=== PATIENT | female | born 1945 | race African-American/Black ===

== ENCOUNTER 2016-07-18 14:58 | Observation (INO) | payer OTHER ==
--- NOTE | 2016-07-18 15:33 | PDOC ---
History of Present Illness - General History Source: Patient Exam Limitations: No Limitations - History of Present Illness Initial Comments: 07/18/16 15:35 <Marie Montgomery - Last Filed: 07/18/16 15:35> - General History Source: Patient Exam Limitations: No Limitations - History of Present Illness Initial Comments: 07/18/16 17:13 The patient is a 70-year-old woman with a significant past medical history of asthma, hypertension, hypercholesterolemia and diabetes mellitus who presents to the emergency department for further evaluation of pre-syncope. Patient states that yesterday, she went to accompany her daughter to the nail salon, when she felt lightheaded, described as feeling flushed, sweaty and feeling like she was going to faint. Patient states that she took her insulin, had a piece of bread and felt better. She admits that she did not have much to eat yesterday. She states that today, she was in her usual state of health, lying down watching television at approximately 14:30 this afternoon, when she felt lightheaded and diaphoretic. She reports compliance with eating sufficient today and taking her medications. She states that her sugars typically run in the 120s range. She states that she measured her blood glucose prior and post meal, with a reported blood glucose measurement of 89 prior eating her bowl of cereal and 80 post cereal. She denies associated symptoms of palpitations, chest pain, visual changes, abdominal pain, nausea, vomiting, diarrhea. She believes that her symptoms are derived from a upper respiratory symptoms that she experienced last week (runny nose, intermittent productive cough with mucus ). Allergies: None Known Past Surgical History: Cholecystectomy Social History: She denies tobacco, ETOH and recreational drug use. Primary Care Physician: Dr. Ely Ventura [phone] Cardiology: Dr. Wil La [phone] <Lucho Boyce - Last Filed: 07/18/16 18:14> - General Chief Complaint: Weakness Stated Complaint: WEAKNESS Time Seen by Provider: 07/18/16 15:18 Past History <Marie Montgomery - Last Filed: 07/18/16 15:35> - Past Medical History Asthma: Yes Diabetes: Yes HTN: Yes Hypercholesterolemia: Yes - Surgical History Abdominal Surgery: Yes (gall bladder) Cholecystectomy: Yes - Psycho/Social/Smoking Cessation Hx Anxiety: No Suicidal Ideation: No Smoking Status: No Smoking History: Never smoked Have you smoked in the past 12 months: No Number of Cigarettes Smoked Daily: 0 Information on smoking cessation initiated: No Hx Alcohol Use: No Drug/Substance Use Hx: No <Lucho Boyce - Last Filed: 07/18/16 18:14> - Past Medical History Allergies/Adverse Reactions: Allergies Allergy/AdvReac Type Severity Reaction Status Date / Time No Known Allergies Allergy Verified 07/18/16 15:05 Home Medications: Ambulatory Orders Atorvastatin Calcium 20 mg PO ASDIR 03/29/16 Azithromycin [Zithromax Tri-Long (3 DAYS) -] 500 mg PO DAILY #3 tablet 03/29/16 Calcium + D Soft Chewable Tab 400 - 600 mg PO ASDIR 03/29/16 Diltiazem HCl 240 mg PO DAILY 03/29/16 Lantus (10mL VIAL) - 100 units PO DAILY 03/29/16 Metformin HCl 1,000 mg PO DAILY 03/29/16 Review of Systems - Review of Systems Able to Perform ROS?: Yes Comments:: 07/18/16 15:35 <Marie Montgomery - Last Filed: 07/18/16 15:35> - Review of Systems Able to Perform ROS?: Yes Comments:: 07/18/16 17:15 CONSTITUTIONAL: No reported: Fever, Chills, Diaphoresis, Generalized Weakness, Malaise, Loss of Appetite HEENT: Reported: Rhinorrhea. No reported: Nasal Congestion, Throat Pain, Throat Swelling, Difficulty Swallowing, Mouth Swelling, Ear Pain, Eye Pain, Visual Changes CARDIOVASCULAR: reported: presyncope, Lightheadedness, No reported: Chest Pain, Syncope, Palpitations, Irregular Heart Rate, Peripheral Edema RESPIRATORY: No reported: Shortness of Breath, SOB with Exertion, Orthopnea, Wheezing, Stridor, Hemoptysis GASTROINTESTINAL: No reported: Abdominal pain, Abdominal Distension, Nausea, Vomiting, Diarrhea, Constipation, Melena, Hematochezia GENITOURINARY: No reported: Dysuria, Frequency, Urgency, Hesitancy, Flank Pain, Genital Pain MUSCULOSKELETAL: No reported: Myalgia, Arthralgia, Joint Swelling, Back pain, Neck Pain SKIN: No reported: Rash, Itching, Pallor HEMEATOLOGIC/IMMUNOLOGIC: No reported: Easy Bleeding, Easy Bruising, Lymphadenopathy, Frequent infections ENDOCRINE: No reported: Unexplained Weight Gain, Unexplained Weight Loss, Heat Intolerance , Cold Intolerance NEUROLOGIC: No reported: Headache, Focal Weakness, Paresthesias, Vertigo, Unsteady Gait, Seizure, Mental Status Changes, Incontinence PSYCHIATRIC: No reported: Anxiety, Depression <Eugene Boycean - Last Filed: 07/18/16 18:14> *Physical Exam - Vital Signs Last Vital Signs Temp Pulse Resp BP Pulse Ox 97.9 F 78 18 162/82 98 07/18/16 15:06 07/18/16 15:06 07/18/16 15:06 07/18/16 15:06 07/18/16 15:06 - Physical Exam Comments: 07/18/16 15:35 <Marie Montgomery - Last Filed: 07/18/16 15:35> - Vital Signs Last Vital Signs Temp Pulse Resp BP Pulse Ox 97.9 F 78 18 162/82 98 07/18/16 15:06 07/18/16 15:06 07/18/16 15:06 07/18/16 15:06 07/18/16 15:06 - Physical Exam Comments: 07/18/16 17:16 GENERAL: The patient is awake, alert, and fully oriented, Nontoxic - in no acute distress. HEAD: Normocephalic, atraumatic. EYES: extraocular movements intact, sclera anicteric, conjunctiva clear. ENT: Normal voice, Moist mucous membranes. NECK: Normal range of motion, supple LUNGS: Breath sounds equal, clear to auscultation bilaterally. No wheezes, no rhonchi, no rales. HEART: Regular rate and rhythm, without murmur, rub or gallop. ABDOMEN: Soft, nontender, normoactive bowel sounds. No guarding, no rebound.No CVA tenderness EXTREMITIES: Normal range of motion, no edema. No clubbing or cyanosis. No cords , erythema, or tenderness. NEUROLOGICAL: No facial assymetry, Normal speech, PSYCH: Normal mood, normal affect. SKIN: Warm, Dry, normal turgor. <Lucho Boyce - Last Filed: 07/18/16 18:14> Heart Score/ECG Review - ECG Impressions Comment:: 07/18/16 15:50 Twelve-lead EKG was performed and reviewed by me. There is normal sinus rhythm with a normal rate. Rate of 73 The axis is normal. The intervals are normal. There is normal R wave progression Q waves in leads 3 T wave flattening noted in the lateral leads <Lucho Boyce - Last Filed: 07/18/16 18:14> ED Treatment Course - LABORATORY CBC & Chemistry Diagram: 07/18/16 16:09 07/18/16 16:09 <Lucho Boyce - Last Filed: 07/18/16 18:14> Medical Decision Making - Medical Decision Making 07/18/16 15:48 70y F hx of htn, dm, hl, presents with episodes of 'flushing', diaphoresis and generalized weakness, lasting for 10-15 min, once yesterday and once again today - the pt denies any associated pain, palpitations, lightheadedhenss, cp, headache, neck pain, back pain, n/v. These occurred at rest, no exertional sypmtoms. pt currently asypmtomatic. On exam the pt is well appearing in no acute distress, vitals unremarakble differential includes hypoglycemia, arrythmia, acs, metabolic dernagement, uti will ck cbc, cmp, ua, ekg, trops will reassess will put on tele montiring A portion of this note was documented by scribe services under my direction. I have reviewed the details of the note, within reason, and agree with the documentation with the following case summary and management plan written by me 07/18/16 17:17 07/18/16 18:10 labs reviewed neg cbc, cmp ekg nondiatnogsitc, but is nsr will place in observation for tele monitoring 07/18/16 18:[address] goel agreed with admission for observation for tele monitring Case discussed in detail with admitting physician including history, physical exam and ancillary studies. Admitting physician has assumed care for the patient, will follow all pending diagnostics and will complete the evaluation and treatment. <Lucho Boyce - Last Filed: 07/18/16 18:14> *DC/Admit/Observation/Transfer - Attestations Scribe Attestion: 07/18/16 15:35 Documentation prepared by Marie Montgomery, acting as medical center representative for Lucho Boyce MD. <Marie Montgomery - Last Filed: 07/18/16 15:35> - Discharge Dispostion Admit: Yes <Lucho Boyce - Last Filed: 07/18/16 18:14> Diagnosis at time of Disposition: Pre-syncope - Discharge Dispostion Condition at time of disposition: Stable
[2016-07-18 16:48] LABS: BASOPHIL 1.1 % (0-2.0); MCH 26.8 pg (25.7-33.7); MCHC 33.4 g/dl (32.0-36.0); MEAN CELL VOLUME 80.3 fl (80-96); MEAN PLT VOLUME 8.5 fl (7.5-11.1); NEUTROPHILS 58.1 % (42.8-82.8); PLATELET COUNT 360 K/MM3 (134-434); RDW 14.3 % (11.6-15.6); WHITE BLOOD COUNT 7.7 K/mm3 (4.0-10.0)
[2016-07-18 17:00] LABS: INR 1.01 (0.82-1.09); PROTHROMBIN TIME (PATIENT) 11.1 SEC (9.98-11.88)
[2016-07-18 17:05] LABS: ALBUMIN 4.2 g/dl (3.4-5.0); ANION GAP 9 (8-16); BILIRUBIN,TOTAL 0.2 mg/dL (0.2-1.0); CALCIUM 10.3 mg/dL (8.5-10.1); CO2 26 mmol/L (21-32); CREATININE 0.9 mg/dL (0.55-1.02); GLUCOSE,RANDOM 130 mg/dL (74-106); SGOT/AST 10 U/L (15-37); SGPT/ALT 19 U/L (12-78); TOT PROT 7.8 g/dl (6.4-8.2)
[2016-07-18 17:13] LABS: ALK PHOS 128 U/L (45-117); THYROID STIMULATING HORMONE 0.58 uIU/ml (0.358-3.74)
[2016-07-18 18:44] LABS: TROPONIN I 0.02 ng/ml (0.00-0.05)
--- NOTE | 2016-07-18 19:39 | PN ---
<DoriDennyalbertina - Last Filed: 07/18/16 19:38> Teaching Attending Note Name of Resident: Karen Gomez ATTENDING PHYSICIAN STATEMENT I saw and evaluated the patient. I reviewed the resident's note and discussed the case with the resident. I agree with the resident's findings and plan as documented. SUBJECTIVE: OBJECTIVE: ASSESSMENT AND PLAN: <Kena Jackman - Last Filed: 07/18/16 21:34> Teaching Attending Note ATTENDING PHYSICIAN STATEMENT I saw and evaluated the patient. I reviewed the resident's note and discussed the case with the resident. I agree with the resident's findings and plan as documented. SUBJECTIVE: The patient is a 70 yo F with a PMHx of asthma, HTN, HLD and diabetes, who presents with lightheadedness and feeling flushed. OBJECTIVE: Physical Last Vital Signs Temp Pulse Resp BP Pulse Ox 97.9 F 78 18 162/82 98 07/18/16 15:06 07/18/16 15:06 07/18/16 15:06 07/18/16 15:06 07/18/16 15:06 GEN: NAD HEENT: NCAT, PERRL CARD: RRR, S1 S2 RESP: CTAB ABD: + Obese. NT, BWS x4 EXT: - CCE CBCD WBC 7.7 K/mm3 (4.0-10.0) 07/18/16 16:09 RBC 4.49 M/mm3 (3.60-5.2) 07/18/16 16:09 Hgb 12.0 GM/dL (10.7-15.3) 07/18/16 16:09 Hct 36.0 % (32.4-45.2) 07/18/16 16:09 MCV 80.3 fl (80-96) 07/18/16 16:09 MCHC 33.4 g/dl (32.0-36.0) 07/18/16 16:09 RDW 14.3 % (11.6-15.6) 07/18/16 16:09 Plt Count 360 K/MM3 (134-434) D 07/18/16 16:09 MPV 8.5 fl (7.5-11.1) 07/18/16 16:09 CMP Sodium 142 mmol/L (136-145) 07/18/16 16:09 Potassium 4.2 mmol/L (3.5-5.1) 07/18/16 16:09 Chloride 107 mmol/L (98-107) 07/18/16 16:09 Carbon Dioxide 26 mmol/L (21-32) 07/18/16 16:09 Anion Gap 9 (8-16) 07/18/16 16:09 BUN 18 mg/dL (7-18) D 07/18/16 16:09 Creatinine 0.9 mg/dL (0.55-1.02) D 07/18/16 16:09 Creat Clearance w eGFR > 60 (>60) 07/18/16 16:09 Calcium 10.3 mg/dL (8.5-10.1) H 07/18/16 16:09 Total Bilirubin 0.2 mg/dL (0.2-1.0) D 07/18/16 16:09 AST 10 U/L (15-37) L D 07/18/16 16:09 ALT 19 U/L (12-78) D 07/18/16 16:09 Alkaline Phosphatase 128 U/L (45-117) H D 07/18/16 16:09 Total Protein 7.8 g/dl (6.4-8.2) 07/18/16 16:09 Albumin 4.2 g/dl (3.4-5.0) 07/18/16 16:09 EKG NSR with rate of 73 Q waves in Lead 3 Last Carotid 2012- Mild atheroscleroscotic disease Last Echo 2012- Ejection Fraction was 68% ASSESSMENT AND PLAN: The patient is a 70 yo F with PMHx of afib, asthma, HTN, HLD and diabetes who presents with lightheadedness dizziness and flushing. Patient will be admitted for pre-syncopal evaluation. 1.) Lightheadedness - Orthostatic VS - Fingersticks - Echo complete - Carotid US - IVF - Trend troponins/ EKG 2.) Diabetes - Fingersticks - Rapid acting Insulin - Continue Metformin - Lantus--> confirm dosage 3.) HTN - Continue cardizem 4.) HLD - Resume statin - Check lipid panel 5.) DVT PPX - Low risk - SCDS Place in Observation Tele Documentation prepared by Kena Jackman, acting as medical detailist for Duran Meadows MD.
--- NOTE | 2016-07-18 20:13 | MSN ---
Admitting History and Physical - Primary Care Physician PCP: Ely Santana - Admission Chief Complaint: Pre-Synope W/ Weakness History of Present Illness: Patient is a 70 year old F with past medical history of Athsma, HTN, DM, Stroke , Rheumatic Fever, Cardiomegaly, and and irregular rhythm, who presented to the ED with after 2 occasions of feeling lightheaded and diaphoretic with generalized weakness. Yesterday the patient was out and she started to feel lightheaded and weak as she does when she has not eaten in a while. When she got home later that day she ate a piece of bread and felt better. Today she had a similar feeling of lightheadedness and weakness but was also diaphoretic. She ate cereal and noted that her blood sugar dropped from 89 preprandial to 80 Postprandial. The patient states that she has been coughing up mucus and her nose has been running for the past week. She denies any CP, SOB, Visual changes, Changes in urinatior stool, nausea, vomiting, diarrhea, const. or abdominal pain. History Source: Patient Limitations to Obtaining History: No Limitations - Past Medical History PRESENTATION SPECIALIST: Yes: CVA Cardiovascular: Yes: AFIB, Other (Rheumatic Fever, Irregular heart beat) Pulmonary: Yes: Asthma Gastrointestinal: No: Constipation Endocrine: Yes: Diabetes Mellitus - Past Surgical History Past Surgical History: Yes: Cholecystectomy, Hysterectomy Additional Past Surgical History: Lumpectomy x3 - Smoking History Smoking history: Former smoker Have you smoked in the past 12 months: No Aproximately how many cigarettes per day: 1 If you are a former smoker, when did you quit?: 2006 - Alcohol/Substance Use Hx Alcohol Use: Yes (Quit in 2006) - Social History Usual Living Arrangement: Yes: Alone ADL: Support Services History of Recent Travel: No Home Medications - Allergies Allergies/Adverse Reactions: Allergies Allergy/AdvReac Type Severity Reaction Status Date / Time No Known Allergies Allergy Verified 07/18/16 15:05 - Home Medications Home Medications: Ambulatory Orders Aspirin [ASA -] 81 mg PO DAILY 07/18/16 Atorvastatin Ca [Lipitor] 20 mg PO HS 07/18/16 Calcium Carbonate/Vitamin D3 [Calcium 600 + Vit D Tablet] 1 each PO DAILY Carvedilol [Coreg] 6.25 mg PO BID 07/18/16 Clopidogrel Bisulfate [Plavix -] 75 mg PO DAILY 07/18/16 Diltiazem Cd [Cardizem Cd -] 240 mg PO DAILY 07/18/16 Gemfibrozil [Lopid -] 600 mg PO BID 07/18/16 Glimepiride [Amaryl -] 4 mg PO DAILY@0700 07/18/16 Metformin HCl [Metformin HCl ER] 1,000 mg PO BID 07/18/16 Family Disease History - Family Disease History Family Disease History: Other: Mother (Cirrhosis ) Review of Systems - Review of Systems Constitutional: reports: Diaphoresis, Weakness. denies: Fever Eyes: reports: No Symptoms HENT: reports: No Symptoms Neck: reports: No Symptoms Cardiovascular: reports: No Symptoms. denies: Chest Pain, Shortness of Breath Respiratory: reports: Cough Gastrointestinal: reports: No Symptoms Genitourinary: reports: No Symptoms Breasts: reports: No Symptoms Reported Musculoskeletal: reports: Muscle Weakness Integumentary: reports: No Symptoms Neurological: reports: Pre-Existing Deficit (Weakness in left side due to previous stroke), Weakness Endocrine: reports: Excessive Sweating Hematology/Lymphatic: reports: No Symptoms Psychiatric: reports: No Symptoms Physical Examination Vital Signs: Vital Signs Temperature 97.9 F 07/18/16 15:06 Pulse Rate 78 07/18/16 15:06 Respiratory Rate 18 07/18/16 15:06 Blood Pressure 162/82 07/18/16 15:06 O2 Sat by Pulse Oximetry (%) 98 07/18/16 15:06 Constitutional: Yes: Well Nourished, No Distress, Calm Eyes: Yes: WNL, Conjunctiva Clear, EOM Intact, PERRL HENT: Yes: WNL, Atraumatic, Normocephalic Neck: Yes: WNL, Supple, Trachea Midline Cardiovascular: Yes: WNL, Regular Rate and Rhythm, S1, S2. No: Gallop, Murmur, Rub Respiratory: Yes: WNL, Regular, CTA Bilaterally Gastrointestinal: Yes: WNL, Normal Bowel Sounds, Soft, Abdomen, Obese Edema: No Integumentary: Yes: WNL Neurological: Yes: WNL, Alert, Oriented, Pre-Existing Deficit (Weakness on left side due to stroke) Psychiatric: Yes: WNL, Alert, Oriented Assessment/Plan Patient is a 70 year old F with past medical history of athsma, HTN, DM, Stroke , Rheumatic Fever, Cardiomegaly, and a.fib, who presented to the ED with after 2 occasions of feeling lightheaded and diaphoretic with generalized weakness. Due to her presentation and symptoms the diagnosis of pre-syncope due to a URI or uncontrolled glucose. Lightheadedness -Orthostatic BP -Glucose Fingersticks -Echo-complete -Carotid US -IVF -Trend troponins-Neg -EKG-neg -Fluids Diabetes -Fingersticks -Rapid acting Insulin -hold Metformin -Lantus-confirm dosage HTN -Continue cardizem HLD -Resume statin -Check lipid panel DVT PPX -Low risk -SCDS URI -Rapid Strep -Influenza Screen
[2016-07-18] MEDS ORDERED: SODIUM CHLORIDE 1,000 ML IV SCH (21:30)
[2016-07-18] MEDS ORDERED: ATORVASTATIN CA 20 MG TABLET (FP) PO SCH (22:00)
--- NOTE | 2016-07-18 22:01 | HP ---
CHIEF COMPLAINT: Weakness and lightheadedness PCP: Dr. Gama HISTORY OF PRESENT ILLNESS: Patient is a 70 year old female with a PMHx of HTN, HLD, DMII, CHF, A.fib, CVA, Rheumatic fever who complains of lightheadedness and weakness that first started yesterday afternoon. Patient reports she skipped breakfast and then ate some bread, which helped resolve the symptoms. Patient then reports today she started feeling lightheaded, dizzy, and fatigued associated with diaphoresis. Patient states in the past week she's had cold symptoms that included a dry cough, runny nose, and congestion. Patient also reports that she was unable to walk today due to her lightheadedness to the point of feeling like she was about to pass out, which prompted this hospital visit. She ate some cereal but her blood sugar dropped from 89 to 80 postprandial. Patient does report similar symptoms in the past when she had a respiratory infection. Otherwise, patient denies fever, chills, vomiting, chest pain, palpitations, shortness of breath, abdominal pain, headache, abdominal pain. ER course was notable for: (1) Chest x-ray (2) Cardiac enzymes (3) Recent Travel: Denies PAST MEDICAL HISTORY: HTN, HLD, DMII, CHF, A.fib, CVA, Rheumatic fever PAST SURGICAL HISTORY: Cholecystectomy, Hysterectomy, Lumpectomy Social History: Smoking: Quit in 2006 Alcohol: Quit in 2006 Drugs: Denies Family History: Mother had liver cirrhosis Allergies: No Known Allergies Allergy (Verified 07/18/16 15:05) HOME MEDICATIONS: Home Medications Medication Instructions Recorded Atorvastatin Calcium 20 mg PO ASDIR 03/29/16 Azithromycin [Zithromax Tri-Long (3 500 mg PO DAILY #3 tablet 03/29/16 DAYS) -] Calcium + D Soft Chewable Tab 400 - 600 mg PO ASDIR 03/29/16 Diltiazem HCl 240 mg PO DAILY 03/29/16 Lantus (10mL VIAL) - 100 units PO DAILY 03/29/16 Metformin HCl 1,000 mg PO DAILY 03/29/16 REVIEW OF SYSTEMS CONSTITUTIONAL: diaphoresis, generalized weakness, malaise Absent: fever, chills, loss of appetite, weight change HEENT: rhinorrhea, nasal congestion Absent: throat pain, throat swelling, difficulty swallowing, mouth swelling, ear pain, eye pain, visual changes CARDIOVASCULAR: Absent: chest pain, syncope, palpitations, irregular heart rate, lightheadedness , peripheral edema RESPIRATORY: cough Absent: shortness of breath, dyspnea with exertion, orthopnea, wheezing, stridor , hemoptysis GASTROINTESTINAL: nausea Absent: abdominal pain, abdominal distension, vomiting, diarrhea, constipation, melena, hematochezia GENITOURINARY: Absent: dysuria, frequency, urgency, hesitancy, hematuria, flank pain, genital pain MUSCULOSKELETAL: Absent: myalgia, arthralgia, joint swelling, back pain, neck pain SKIN: Absent: rash, itching, pallor HEMATOLOGIC/IMMUNOLOGIC: Absent: easy bleeding, easy bruising, lymphadenopathy, frequent infections ENDOCRINE: Absent: unexplained weight gain, unexplained weight loss, heat intolerance, cold intolerance NEUROLOGIC: Absent: headache, focal weakness or paresthesias, dizziness, unsteady gait, seizure, mental status changes, bladder or bowel incontinence PSYCHIATRIC: Absent: anxiety, depression, suicidal or homicidal ideation, hallucinations. Vital Signs - 24 hr 07/18/16 15:06 Temperature 97.9 F Pulse Rate 78 Respiratory 18 Rate Blood Pressure 162/82 O2 Sat by Pulse 98 Oximetry (%) PHYSICAL EXAMINATION GENERAL: Awake, alert, and fully oriented, in no acute distress. HEAD: Normal with no signs of trauma. EYES: Pupils equal, round and reactive to light, extraocular movements intact, sclera anicteric, conjunctiva clear. EARS, NOSE, THROAT: Ears normal, nares patent, oropharynx clear without exudates. Moist mucous membranes. NECK: Normal range of motion, supple without lymphadenopathy, JVD, or masses. LUNGS: Breath sounds equal, clear to auscultation bilaterally. No wheezes, and no crackles. No accessory muscle use. HEART: Regular rate and rhythm, normal S1 and S2 without murmur, rub or gallop. ABDOMEN: Obese, Soft, nontender, not distended, normoactive bowel sounds, no guarding, no rebound, no masses. No hepatomegaly or splenomegaly. EXTREMITIES: No peripheral edema. NEUROLOGICAL: No focal deficits. Normal speech. Normal gait. PSYCHIATRIC: Cooperative. Good eye contact. Appropriate mood and affect. SKIN: Warm, dry, normal turgor, no rashes or lesions noted. Laboratory Results - last 24 hr 07/18/16 07/18/16 07/18/16 16:09 16:09 16:09 WBC 7.7 RBC 4.49 Hgb 12.0 Hct 36.0 MCV 80.3 MCHC 33.4 RDW 14.3 Plt Count 360 D MPV 8.5 Neutrophils % 58.1 Lymphocytes % 27.9 Monocytes % 7.9 Eosinophils % 5.0 H D Basophils % 1.1 INR 1.01 Sodium 142 Potassium 4.2 Chloride 107 Carbon Dioxide 26 Anion Gap 9 BUN 18 D Creatinine 0.9 D Creat Clearance w eGFR > 60 Random Glucose 130 H D Calcium 10.3 H Total Bilirubin 0.2 D AST 10 L D ALT 19 D Alkaline Phosphatase 128 H D Creatine Kinase Troponin I Total Protein 7.8 Albumin 4.2 TSH 0.58 07/18/16 16:25 WBC RBC Hgb Hct MCV MCHC RDW Plt Count MPV Neutrophils % Lymphocytes % Monocytes % Eosinophils % Basophils % INR Sodium Potassium Chloride Carbon Dioxide Anion Gap BUN Creatinine Creat Clearance w eGFR Random Glucose Calcium Total Bilirubin AST ALT Alkaline Phosphatase Creatine Kinase 111 Troponin I 0.02 Total Protein Albumin TSH Chest X-ray: No acute pathology. Cardiomegaly ASSESSMENT/PLAN: Patient is a 70 year old female with a PMHx of HTN, HLD, DMII, CHF, A.fib who presents today for near syncopal episode due to lightheadedness and dizziness. Patient admitted to telemetry for further monitoring and management. Lightheadedness with near syncopal episode -Echo ordered -Carotid U/S ordered -Trend Troponing -IV fluids with NS @75mls/hr -Orthostatic vital signs -Cardiac monitoring for any arrhythmias Upper Respiratory Infection -Symptoms of rhinorrhea, dry cough, and congestion -Flu Swab -Treat symptomatically HTN -Continue home medication Carvedilol 6.25mg BID -Continue to monitor BP DM II -Insulin Sliding Scale -BGM -Lantus- confirm dosage HLD -Resume Atorvastatin 40mg daily -Continue Gemifibrozil 600mg BID A.fib -Continue Diltiazem HCl 240mg -Continue Cardiac monitoring CHF -On no home medication -Chest X-ray shows cardiomegaly but no cute pathology CAD -Continue ASA 81mg daily F/E/N -Normal Saline @75mls/hr -Electrolytes wnl -Diabetic/sodium/fat controlled diet Prophylaxis -SCD's for DVT Disposition -Full code -Placed in observation to telemetry. Visit type - Emergency Visit Emergency Visit: Yes ED Registration Date: 07/18/16 Care time: The patient presented to the Emergency Department on the above date and was hospitalized for further evaluation of their emergent condition. - New Patient This patient is new to me today: Yes Date on this admission: 07/18/16 - Critical Care Critical Care patient: No
--- NOTE | 2016-07-19 00:19 | EKG ---
Test Reason : Blood Pressure : / mmHG Vent. Rate : 073 BPM Atrial Rate : 073 BPM P-R Int : 192 ms QRS Dur : 080 ms QT Int : 372 ms P-R-T Axes : 008 030 020 degrees QTc Int : 409 ms NORMAL SINUS RHYTHM POSSIBLE ANTERIOR INFARCT , AGE UNDETERMINED ABNORMAL ECG WHEN COMPARED WITH ECG OF 12-APR-2013 08:51, T WAVE VARIATION Confirmed by DIMITRY GALAN MD ([id number]) on 07/19/2016 12:19:09 AM Referred By: Confirmed By:DIMITRY GALAN MD
[2016-07-19 00:31] VITALS: BMI 34.9
[2016-07-19 01:51] LABS: ANION GAP 11 (8-16); BILIRUBIN,TOTAL 0.2 mg/dL (0.2-1.0); CALCIUM 10.2 mg/dL (8.5-10.1); CO2 28 mmol/L (21-32); CREATININE 0.8 mg/dL (0.55-1.02); GLUCOSE,RANDOM 131 mg/dL (74-106); SGOT/AST 11 U/L (15-37); SGPT/ALT 15 U/L (12-78); TOT PROT 7.4 g/dl (6.4-8.2)
[2016-07-19 01:52] LABS: ALK PHOS 121 U/L (45-117)
[2016-07-19 03:50] LABS: URINE APPEARANCE CLEAR; URINE BILIRUBIN NEGATIVE (NEGATIVE); URINE BLOOD NEGATIVE (NEGATIVE); URINE COLOR LTYELLOW; URINE GLUCOSE (UA) NEGATIVE (NEGATIVE); URINE KETONE NEGATIVE (NEGATIVE); URINE NITRITE NEGATIVE (NEGATIVE); URINE PROTEIN NEGATIVE (NEGATIVE); URINE UROBILINOGEN NEGATIVE E.U./dl (0.2-1.0)
[2016-07-19 03:51] LABS: URINE LEUK ESTERASE TRACE (NEGATIVE)
[2016-07-19 03:55] LABS: URINE BACTERIA RARE /hpf (NONE SEEN); URINE HYALINE CAST 1 /lpf; URINE RBC <1 /hpf (0-3); URINE WBC 3 /hpf (3-5)
[2016-07-19] MEDS: INSULIN SLIDING SCALE (NOVOLOG) 1 VIAL SQ SCH ×2 (06:22→12:38)
[2016-07-19] MEDS: CARVEDILOL 6.25 MG TABLET (FP) PO SCH ×2 (06:22→09:19)
[2016-07-19] MEDS ORDERED: GEMFIBROZIL 600 MG TABLET (FP) PO SCH (07:00)
[2016-07-19 08:33] LABS: TROPONIN I 0.02 ng/ml (0.00-0.05)
--- NOTE | 2016-07-19 09:10 | MSN ---
Progress Note (SOAP) - Subjective Chief Complaint: Lightheadedness and generalized weakness History of Present Illness: Pt is a 70 yo female with a PMHx of HTN, HLD, DMII, CHF, Afib, CVA, and rheumatic fever, who presented to the ER on 07/18/16 complaining of lightheadedness and generalized weakness. She states she had a similar episode the day before as well. The episode of lightheadedness correlated with a blood sugar level of 89 preprandial that dropped to 80 postprandial after eating cereal. Pt admits to having URI Sx for the past week including cough, rhinorrhea , and congestion. Denies F/C, N/V, diarrhea, abdominal pain, CP, palpitations, SOB, headache, and acute change in vision. - Current Medications Current Medications: Active Medications Aspirin (Asa -) 81 mg PO DAILY [facility] Atorvastatin Calcium (Lipitor -) 20 mg PO HS [facility] Last Admin: 07/19/16 06:22 Dose: 20 mg Carvedilol (Coreg -) 6.25 mg PO BID [facility] Last Admin: 07/19/16 06:22 Dose: 6.25 mg Clopidogrel Bisulfate (Plavix -) 75 mg PO DAILY [facility] Diltiazem HCl (Cardizem Cd -) 240 mg PO DAILY [facility] Gemfibrozil (Lopid -) 600 mg PO BID@0700,1630 [facility] Last Admin: 07/19/16 06:23 Dose: 600 mg Sodium Chloride (Normal Saline -) 1,000 mls @ 75 mls/hr IV ASDIR [facility] Last Admin: 07/18/16 21:44 Dose: 75 mls/hr Insulin Aspart (Novolog Vial Sliding Scale -) 1 vial SQ ACHS [facility] PRN Reason: Protocol Last Admin: 07/19/16 06:22 Dose: 2 units - Objective Vital Signs: Vital Signs Temperature 98.2 F 07/19/16 09:00 Pulse Rate 64 07/19/16 09:00 Respiratory Rate 14 07/19/16 09:00 Blood Pressure 160/86 07/19/16 09:00 O2 Sat by Pulse Oximetry (%) 100 07/19/16 06:00 Constitutional: Yes: Well Nourished, No Distress, Calm Eyes: Yes: WNL, Conjunctiva Clear, EOM Intact, PERRL. No: Sclera Icterus HENT: Yes: WNL, Atraumatic, Normocephalic, Nasal Congestion, Rhinnorhea Cardiovascular: Yes: Pulse Irregular. No: JVD, Gallop, Murmur Respiratory: Yes: WNL, Regular, CTA Bilaterally. No: SOB Gastrointestinal: Yes: Normal Bowel Sounds, Soft Musculoskeletal: Yes: WNL Extremities: Yes: WNL Edema: No Neurological: Yes: WNL, Alert, Oriented, Numbness (Numbness in R hand s/p CVA in 2012) ...Motor Strength: Yes: WNL Psychiatric: Yes: WNL, Alert, Oriented Labs Lab Results: Laboratory Last Values WBC 7.7 K/mm3 (4.0-10.0) 07/18/16 16:09 RBC 4.49 M/mm3 (3.60-5.2) 07/18/16 16:09 Hgb 12.0 GM/dL (10.7-15.3) 07/18/16 16:09 Hct 36.0 % (32.4-45.2) 07/18/16 16:09 MCV 80.3 fl (80-96) 07/18/16 16:09 MCHC 33.4 g/dl (32.0-36.0) 07/18/16 16:09 RDW 14.3 % (11.6-15.6) 07/18/16 16:09 Plt Count 360 K/MM3 (134-434) D 07/18/16 16:09 MPV 8.5 fl (7.5-11.1) 07/18/16 16:09 Neutrophils % 58.1 % (42.8-82.8) 07/18/16 16:09 Lymphocytes % 27.9 % (8-40) 07/18/16 16:09 Monocytes % 7.9 % (3.8-10.2) 07/18/16 16:09 Eosinophils % 5.0 % (0-4.5) H D 07/18/16 16:09 Basophils % 1.1 % (0-2.0) 07/18/16 16:09 INR 1.01 (0.82-1.09) 07/18/16 16:09 Sodium 142 mmol/L (136-145) 07/19/16 00:30 Potassium 4.2 mmol/L (3.5-5.1) 07/19/16 00:30 Chloride 103 mmol/L (98-107) 07/19/16 00:30 Carbon Dioxide 28 mmol/L (21-32) 07/19/16 00:30 Anion Gap 11 (8-16) 07/19/16 00:30 BUN 18 mg/dL (7-18) 07/19/16 00:30 Creatinine 0.8 mg/dL (0.55-1.02) 07/19/16 00:30 Creat Clearance w eGFR > 60 (>60) 07/19/16 00:30 POC Glucometer 164 UNITS (()) 07/19/16 05:50 Random Glucose 131 mg/dL (74-106) H 07/19/16 00:30 Calcium 10.2 mg/dL (8.5-10.1) H 07/19/16 00:30 Total Bilirubin 0.2 mg/dL (0.2-1.0) 07/19/16 00:30 AST 11 U/L (15-37) L 07/19/16 00:30 ALT 15 U/L (12-78) D 07/19/16 00:30 Alkaline Phosphatase 121 U/L (45-117) H 07/19/16 00:30 Creatine Kinase 96 IU/L (26-192) 07/19/16 07:45 Troponin I 0.02 ng/ml (0.00-0.05) 07/19/16 07:45 Total Protein 7.4 g/dl (6.4-8.2) 07/19/16 00:30 Albumin 4.0 g/dl (3.4-5.0) 07/19/16 00:30 TSH 0.58 uIU/ml (0.358-3.74) 07/18/16 16:09 Urine Color Ltyellow 07/19/16 03:30 Urine Appearance Clear 07/19/16 03:30 Urine pH 6.0 (5.0-8.0) 07/19/16 03:30 Ur Specific [place] 1.017 (1.001-1.035) 07/19/16 03:30 Urine Protein Negative (NEGATIVE) 07/19/16 03:30 Urine Glucose (UA) Negative (NEGATIVE) 07/19/16 03:30 Urine Ketones Negative (NEGATIVE) 07/19/16 03:30 Urine Blood Negative (NEGATIVE) 07/19/16 03:30 Urine Nitrite Negative (NEGATIVE) 07/19/16 03:30 Urine Bilirubin Negative (NEGATIVE) 07/19/16 03:30 Urine Urobilinogen Negative E.U./dl (0.2-1.0) 07/19/16 03:30 Ur Leukocyte Esterase Trace (NEGATIVE) H 07/19/16 03:30 Urine RBC <1 /hpf (0-3) 07/19/16 03:30 Urine WBC 3 /hpf (3-5) 07/19/16 03:30 Ur Epithelial Cells Rare /hpf (FEW) 07/19/16 03:30 Urine Bacteria Rare /hpf (NONE SEEN) 07/19/16 03:30 Hyaline Casts 1 /lpf 07/19/16 03:30 Imaging - Results Chest X-ray: Report Reviewed Ultrasound: Pending (Carotid ultrasound) EKG: Report Reviewed Other: Pending (ECHO) Problem List - Problems (1) Pre-syncope Code(s): R55 - SYNCOPE AND COLLAPSE (2) Bronchitis Code(s): J40 - BRONCHITIS, NOT SPECIFIED ACUTE OR CHRONIC (3) Nasal congestion Code(s): R09.81 - NASAL CONGESTION Assessment/Plan Pt is a 70 yo F with a PMHx of HTN, HLD, DMII, CHF, Afib, CVA, and rheumatic fever, who presented to the ER s/p pre-syncopal episode complaining of lightheadedness and weakness. Pt was admitted to telemetry for further monitoring and management. 1. Lightheadedness with near syncopal episode -ECHO performed -Carotid U/S pending -Troponins trended (.02) -IVF with NS running at 75 mls/hr -Cardiac monitoring 2. URI -Improving -Flu swab negative -Treat symptomatically 3. HTN -Cont. home med Carvedilol 6.25mg BID -BP
[2016-07-19] MEDS ORDERED: ASPIRIN 81 MG CHEWABLE TABLETS PO SCH (10:00)
[2016-07-19] MEDS ORDERED: CLOPIDOGREL BISULFATE 75 MG TABLET (FP) PO SCH (10:00)
--- NOTE | 2016-07-19 12:25 | PN ---
Progress Note (short form) - Note Progress Note: Vascular Surgery Pt seen and examined. CArotid doppler images reviewed. All velocities within ike limits. No stenosis in ICA No need for intervention for right eca. Medical management. Taqueria Benites DO
--- NOTE | 2016-07-19 13:48 | PN ---
Physical Exam: SUBJECTIVE: Patient seen and examined out of bed to chair, patient states feeling better, denies light headedness, dizziness, headache, or unsteadiness when walking. OBJECTIVE: Vital Signs Period Temp Pulse Resp BP Sys/Carroll Pulse Ox Last 24 Hr 98 F-98.8 F 64-72 14-18 160-174/84-86 96-100 GENERAL: The patient is awake, alert, and fully oriented, in no acute distress. LUNGS: Breath sounds equal, clear to auscultation bilaterally, no wheezes, no crackles, no accessory muscle use. HEART: Regular rate and rhythm, S1, S2 without murmur, rub or gallop. ABDOMEN: Soft, nontender, nondistended, normoactive bowel sounds, no guarding, no rebound, no hepatosplenomegaly, no masses. EXTREMITIES: 2+ pulses, warm, well-perfused, no edema. NEUROLOGICAL: Cranial nerves II through XII grossly intact. Normal speech, gait not observed. PSYCH: Normal mood, normal affect. SKIN: Warm, dry, normal turgor, no rashes or lesions noted CBCD WBC 7.7 K/mm3 (4.0-10.0) 07/18/16 16:09 RBC 4.49 M/mm3 (3.60-5.2) 07/18/16 16:09 Hgb 12.0 GM/dL (10.7-15.3) 07/18/16 16:09 Hct 36.0 % (32.4-45.2) 07/18/16 16:09 MCV 80.3 fl (80-96) 07/18/16 16:09 MCHC 33.4 g/dl (32.0-36.0) 07/18/16 16:09 RDW 14.3 % (11.6-15.6) 07/18/16 16:09 Plt Count 360 K/MM3 (134-434) D 07/18/16 16:09 MPV 8.5 fl (7.5-11.1) 07/18/16 16:09 CMP Sodium 142 mmol/L (136-145) 07/19/16 00:30 Potassium 4.2 mmol/L (3.5-5.1) 07/19/16 00:30 Chloride 103 mmol/L (98-107) 07/19/16 00:30 Carbon Dioxide 28 mmol/L (21-32) 07/19/16 00:30 Anion Gap 11 (8-16) 07/19/16 00:30 BUN 18 mg/dL (7-18) 07/19/16 00:30 Creatinine 0.8 mg/dL (0.55-1.02) 07/19/16 00:30 Creat Clearance w eGFR > 60 (>60) 07/19/16 00:30 Random Glucose 131 mg/dL (74-106) H 07/19/16 00:30 Calcium 10.2 mg/dL (8.5-10.1) H 07/19/16 00:30 Total Bilirubin 0.2 mg/dL (0.2-1.0) 07/19/16 00:30 AST 11 U/L (15-37) L 07/19/16 00:30 ALT 15 U/L (12-78) D 07/19/16 00:30 Alkaline Phosphatase 121 U/L (45-117) H 07/19/16 00:30 Total Protein 7.4 g/dl (6.4-8.2) 07/19/16 00:30 Albumin 4.0 g/dl (3.4-5.0) 07/19/16 00:30 CARDIAC ENZYMES Creatine Kinase 96 IU/L (26-192) 07/19/16 07:45 Troponin I 0.02 ng/ml (0.00-0.05) 07/19/16 07:45 Laboratory Results - last 24 hr 07/19/16 07/19/16 07/19/16 00:30 00:30 03:30 Sodium 142 Potassium 4.2 Chloride 103 Carbon Dioxide 28 Anion Gap 11 BUN 18 Creatinine 0.8 Creat Clearance w eGFR > 60 POC Glucometer Random Glucose 131 H Calcium 10.2 H Total Bilirubin 0.2 AST 11 L ALT 15 D Alkaline Phosphatase 121 H Creatine Kinase Troponin I 0.02 Total Protein 7.4 Albumin 4.0 Urine Color Ltyellow Urine Appearance Clear Urine pH 6.0 Ur Specific [place] 1.017 Urine Protein Negative Urine Glucose (UA) Negative Urine Ketones Negative Urine Blood Negative Urine Nitrite Negative Urine Bilirubin Negative Urine Urobilinogen Negative Ur Leukocyte Esterase Trace H Urine RBC <1 Urine WBC 3 Ur Epithelial Cells Rare Urine Bacteria Rare Hyaline Casts 1 07/19/16 07/19/16 07/19/16 05:50 07:45 12:30 Sodium Potassium Chloride Carbon Dioxide Anion Gap BUN Creatinine Creat Clearance w eGFR POC Glucometer 164 202 Random Glucose Calcium Total Bilirubin AST ALT Alkaline Phosphatase Creatine Kinase 96 Troponin I 0.02 Total Protein Albumin Urine Color Urine Appearance Urine pH Ur Specific [place] Urine Protein Urine Glucose (UA) Urine Ketones Urine Blood Urine Nitrite Urine Bilirubin Urine Urobilinogen Ur Leukocyte Esterase Urine RBC Urine WBC Ur Epithelial Cells Urine Bacteria Hyaline Casts Active Medications Generic Name Dose Route Start Last Admin Trade Name Olivia PRN Reason Stop Dose Admin Aspirin 81 mg 07/19/16 10:00 07/19/16 09:18 Asa - PO 81 mg DAILY [facility] Administration Atorvastatin Calcium 20 mg 07/18/16 22:00 07/19/16 06:22 Lipitor - PO 20 mg HS [facility] Administration Carvedilol 6.25 mg 07/18/16 22:00 07/19/16 09:19 Coreg - PO Not Given BID [facility] Clopidogrel Bisulfate 75 mg 07/19/16 10:00 07/19/16 09:18 Plavix - PO 75 mg DAILY [facility] Administration Diltiazem HCl 240 mg 07/19/16 10:00 07/19/16 09:18 Cardizem Cd - PO 240 mg DAILY [facility] Administration Gemfibrozil 600 mg 07/19/16 07:00 07/19/16 06:23 Lopid - PO 600 mg BID@0700,1630 [facility] Administration Sodium Chloride 1,000 mls @ 75 mls/hr 07/18/16 21:30 07/18/16 21:44 Normal Saline - IV 75 mls/hr ASDIR [facility] Administration Insulin Aspart 1 vial 07/18/16 22:00 07/19/16 12:38 Novolog Vial Sliding Scale - SQ 4 units ACHS [facility] Administration Protocol Microbiology 07/19/16 00:30 Nasopharyngeal Swab Influenza Types A,B Antigen (BLAKE) - Final 07/19/16 00:30 Nasopharyngeal Swab - Final 07/19/16 00:30 Nasopharyngeal Swab Respiratory Virus Panel - Preliminary Imaging 07/19/16 - ECHO - The transmitral spectral Doppler flow pattern is suggestive of impaired LV relaxation. The left atrium is mildly dilated. There is mild mitral annular calcification, mild to moderate mitral regurge, trace to mild tricuspid regurge and mild aortic sclerosis. 07/19/16 - Carotid doppler - reviewd by Vascular Surgery Taqueria Benites DO, all velocities are WNL, no stenosis in ICA or need for intervention for right ECA. ASSESSMENT This is a 70 year old female with a past medical history of HTN, HLD, DMII, CHF , CVA, Afib, Rhematic fever, and orthostatic hypotension who presnted to the ED with light-headedness and generalized weakness after 1x week of URI symptoms. PLAN:
[2016-07-19] MEDS ORDERED: LOSARTAN POTASSIUM 25 MG TABLET PO ONE (15:11)
[2016-07-19 16:00] VITALS: BP 146/68; PULSE 65; TEMP 98.4
--- NOTE | 2016-07-19 16:40 | DS ---
Physical Exam: SUBJECTIVE: Patient seen and examined out of bed to chair, patient states feeling better, denies light headedness, dizziness, headache, or unsteadiness when walking. OBJECTIVE: Vital Signs Period Temp Pulse Resp BP Sys/Carroll Pulse Ox Last 24 Hr 98 F-98.8 F 64-72 14-18 160-174/84-86 96-100 PHYSICAL EXAM GENERAL: The patient is awake, alert, and fully oriented, in no acute distress. LUNGS: Breath sounds equal, clear to auscultation bilaterally, no wheezes, no crackles, no accessory muscle use. HEART: Regular rate and rhythm, S1, S2 without murmur, rub or gallop. ABDOMEN: Soft, nontender, nondistended, normoactive bowel sounds, no guarding, no rebound, no hepatosplenomegaly, no masses. EXTREMITIES: 2+ pulses, warm, well-perfused, no edema. NEUROLOGICAL: Cranial nerves II through XII grossly intact. Normal speech, gait not observed. PSYCH: Normal mood, normal affect. SKIN: Warm, dry, normal turgor, no rashes or lesions noted LABS CBCD WBC 7.7 K/mm3 (4.0-10.0) 07/18/16 16:09 RBC 4.49 M/mm3 (3.60-5.2) 07/18/16 16:09 Hgb 12.0 GM/dL (10.7-15.3) 07/18/16 16:09 Hct 36.0 % (32.4-45.2) 07/18/16 16:09 MCV 80.3 fl (80-96) 07/18/16 16:09 MCHC 33.4 g/dl (32.0-36.0) 07/18/16 16:09 RDW 14.3 % (11.6-15.6) 07/18/16 16:09 Plt Count 360 K/MM3 (134-434) D 07/18/16 16:09 MPV 8.5 fl (7.5-11.1) 07/18/16 16:09 CMP Sodium 142 mmol/L (136-145) 07/19/16 00:30 Potassium 4.2 mmol/L (3.5-5.1) 07/19/16 00:30 Chloride 103 mmol/L (98-107) 07/19/16 00:30 Carbon Dioxide 28 mmol/L (21-32) 07/19/16 00:30 Anion Gap 11 (8-16) 07/19/16 00:30 BUN 18 mg/dL (7-18) 07/19/16 00:30 Creatinine 0.8 mg/dL (0.55-1.02) 07/19/16 00:30 Creat Clearance w eGFR > 60 (>60) 07/19/16 00:30 Random Glucose 131 mg/dL (74-106) H 07/19/16 00:30 Calcium 10.2 mg/dL (8.5-10.1) H 07/19/16 00:30 Total Bilirubin 0.2 mg/dL (0.2-1.0) 07/19/16 00:30 AST 11 U/L (15-37) L 07/19/16 00:30 ALT 15 U/L (12-78) D 07/19/16 00:30 Alkaline Phosphatase 121 U/L (45-117) H 07/19/16 00:30 Total Protein 7.4 g/dl (6.4-8.2) 07/19/16 00:30 Albumin 4.0 g/dl (3.4-5.0) 07/19/16 00:30 CARDIAC ENZYMES Creatine Kinase 96 IU/L (26-192) 07/19/16 07:45 Troponin I 0.02 ng/ml (0.00-0.05) 07/19/16 07:45 07/18/16 07/19/16 07/19/16 16:25 00:30 07:45 Troponin I 0.02 0.02 0.02 Laboratory Results - last 24 hr 07/19/16 07/19/16 07/19/16 00:30 00:30 03:30 Sodium 142 Potassium 4.2 Chloride 103 Carbon Dioxide 28 Anion Gap 11 BUN 18 Creatinine 0.8 Creat Clearance w eGFR > 60 POC Glucometer Random Glucose 131 H Calcium 10.2 H Total Bilirubin 0.2 AST 11 L ALT 15 D Alkaline Phosphatase 121 H Creatine Kinase Troponin I 0.02 Total Protein 7.4 Albumin 4.0 Urine Color Ltyellow Urine Appearance Clear Urine pH 6.0 Ur Specific [place] 1.017 Urine Protein Negative Urine Glucose (UA) Negative Urine Ketones Negative Urine Blood Negative Urine Nitrite Negative Urine Bilirubin Negative Urine Urobilinogen Negative Ur Leukocyte Esterase Trace H Urine RBC <1 Urine WBC 3 Ur Epithelial Cells Rare Urine Bacteria Rare Hyaline Casts 1 07/19/16 07/19/16 07/19/16 05:50 07:45 12:30 Sodium Potassium Chloride Carbon Dioxide Anion Gap BUN Creatinine Creat Clearance w eGFR POC Glucometer 164 202 Random Glucose Calcium Total Bilirubin AST ALT Alkaline Phosphatase Creatine Kinase 96 Troponin I 0.02 Total Protein Albumin Urine Color Urine Appearance Urine pH Ur Specific [place] Urine Protein Urine Glucose (UA) Urine Ketones Urine Blood Urine Nitrite Urine Bilirubin Urine Urobilinogen Ur Leukocyte Esterase Urine RBC Urine WBC Ur Epithelial Cells Urine Bacteria Hyaline Casts Microbiology 07/19/16 00:30 Nasopharyngeal Swab Influenza Types A,B Antigen (BLAKE) - Final 07/19/16 00:30 Nasopharyngeal Swab - Final 07/19/16 00:30 Nasopharyngeal Swab Respiratory Virus Panel - Preliminary Imaging 07/19/16 - ECHO - The transmitral spectral Doppler flow pattern is suggestive of impaired LV relaxation. The left atrium is mildly dilated. There is mild mitral annular calcification, mild to moderate mitral regurge, trace to mild tricuspid regurge and mild aortic sclerosis. 07/19/16 - Carotid doppler - reviewd by Vascular Surgery Taqueria Benites DO, all velocities are WNL, no stenosis in ICA or need for intervention for right ECA. HOSPITAL COURSE: 07/18/16 This is a 70 year old female with a past medical history of asthma, HTN, HLD, DMII, CHF, CVA, Rhematic fever, and orthostatic hypotension who presented to the ED after two episodes light-headedness, diaphoresis and generalized weakness after taking her insulin and not eating; symptoms improved after eating a piece of bread, and admitted for generalized weakness, likely related to hypoglycemia. Patient also states that she had symptoms x1 week of respiratory infection. ER course was notable for: (1) Chest X-ray - negative pulmonary infiltrates, negative pleural effusion. (2) Cardiac Enzymes - 0.02 (3) Placed on cardiac monitoring. 07/19/16 Generalized weakness workup showed negative trended troponin x3, carotid ultrasound shows moderate size plaque in the right bulb and left common carotid bifurcation/left bulb, without evidence of hemodynamically significant stenosis bilaterally. Moderate size plaque at the origin of the right external cartoid artery with a high peak velocity suggestive of 70% narrowing, however there is no need for intervention in the right ECA as per Vascular surgery Taqueria Benites DO. ECHO showed mild left atrial dilation, mild mitral annular calcification, mild to moderate mitral regurge, trace to mild tricuspid regurge and mild aortic sclerosis. Patient upper respiratory infection symptoms improved, and influenza swab negative. Patient is ambulating, tolerating diabetic, low fat/ chol, low sodium diet. Patient reports all symptoms resolved. Discussed all findings with Dr. La, who states patient has not had any episodes of Afib on EKG's for 3 years (H&P reports patient has history of Afib in HPI, patient not aware of diagnosis). Instructed patient to follow up with Creative Writing Professor and PCP within one week. Date of Admission:07/18/16 Date of Discharge: 07/19/16 Minutes to complete discharge: 35 Discharge Summary Reason For Visit: PRE-SYNCOPE Current Active Problems Pre-syncope (Acute) Condition: Improved - Instructions Diet, Activity, Other Instructions: Please return to the Emergency Room if you have any new persistent, or worsening symptoms. Follow up with any future appointments as indicated. Please stop taking your Lantus until you follow-up with your pcp for further recommendations. Referrals: Wil La MD [Staff Physician] - 1 Week (Please follow-up with your cornetist within 1 week. ) Ely Maier MD [Primary Care Provider] - (Please follow up with your primary care doctor in 2-3 days.) Disposition: HOME - Home Medications Comprehensive Discharge Medication List: Ambulatory Orders Aspirin [ASA -] 81 mg PO DAILY 07/18/16 Atorvastatin Ca [Lipitor] 20 mg PO HS 07/18/16 Calcium Carbonate/Vitamin D3 [Calcium 600 + Vit D Tablet] 1 each PO DAILY Carvedilol [Coreg] 6.25 mg PO BID 07/18/16 Clopidogrel Bisulfate [Plavix -] 75 mg PO DAILY 07/18/16 Diltiazem Cd [Cardizem Cd -] 240 mg PO DAILY 07/18/16 Gemfibrozil [Lopid -] 600 mg PO BID 07/18/16 Glimepiride [Amaryl -] 4 mg PO DAILY@0700 07/18/16 Metformin HCl [Metformin HCl ER] 1,000 mg PO BID 07/18/16 This patient is new to me today: Yes Date on this admission: 07/29/16 Emergency Visit: Yes ED Registration Date: 07/18/16 Care time: The patient presented to the Emergency Department on the above date and was hospitalized for further evaluation of their emergent condition. Critical Care patient: No - Discharge Referral Referred to [facility] No
== END 2016-07-19 17:28 | disposition home or self-care (01) ==
LOC: JER 14:58 → JERBED 18:14 → UNDOADMOB 18:36 → JERBED 18:36 → J4W 07-19 00:03
PROVIDERS: ADMIT Internal Medicine; ATTEND Registered Nurse
DX: E11.649 Type 2 diabetes mellitus with hypoglycemia without coma (principal); R42 Dizziness and giddiness; J40 Bronchitis, not specified as acute or chronic; R09.81 Nasal congestion; J06.9 Acute upper respiratory infection, unspecified; I25.10 Atherosclerotic heart disease of native coronary artery without angina pectoris; I10 Essential (primary) hypertension; E78.5 Hyperlipidemia, unspecified; I50.9 Heart failure, unspecified; I48.91 Unspecified atrial fibrillation; Z86.73 Personal history of transient ischemic attack (TIA), and cerebral infarction without residual deficits
CPT/HCPCS: 36415; 71010-TC; 80053; 81003; 81015; 82550; 84443; 84484; 85025; 85610; 87254; 87804; 93005; 93010; 93306-TC; 93880-TC; 99285-25; G0378

== ENCOUNTER 2020-09-02 16:36 | Emergency (ER) | payer OTHER ==
[2020-09-02 17:04] VITALS: TEMP 99.5; BMI 51.9
[2020-09-02 18:59] LABS: BASO % 1.3 % (0-2.0); EOS % 3.5 % (0-4.5); HEMATOCRIT 36.3 % (32.4-45.2); HEMOGLOBIN 12.4 GM/dL (10.7-15.3); LYMPH % 29.1 % (8-40); MCH 27.3 pg (25.7-33.7); MCHC 34.1 g/dl (32.0-36.0); MEAN CELL VOLUME 79.9 fl (80-96); MEAN PLT VOLUME 8.6 fl (7.5-11.1); MONO % 7.4 % (3.8-10.2); NEUT % 58.7 % (42.8-82.8); PLATELET COUNT 294 K/MM3 (134-434); RBC 4.55 M/mm3 (3.60-5.2); WHITE BLOOD COUNT 8.9 K/mm3 (4.0-10.0)
[2020-09-02 19:20] LABS: ALBUMIN 3.7 g/dl (3.4-5.0); BLOOD UREA NITROGEN 19.6 mg/dL (7-18); CALCIUM 9.9 mg/dL (8.5-10.1)
[2020-09-02 19:23] LABS: CREATININE 0.9 mg/dL (0.55-1.3)
[2020-09-02 19:25] LABS: BILIRUBIN,TOTAL 0.3 mg/dL (0.2-1); TOT PROT 7.4 g/dl (6.4-8.2)
[2020-09-02 20:31] LABS: N-TERMINAL BNP 855.6 pg/ml (5-450)
[2020-09-02 21:01] VITALS: BP 162/84
[2020-09-02 23:14] VITALS: PULSE 78
== END 2020-09-02 21:00 | disposition home or self-care (01) ==
LOC: JER 16:36
DX: R05 Cough (principal)
CPT/HCPCS: 36415; 71046-TC-FY; 80053; 82550; 82553; 83880; 84484; 85025; 93005; 93010; 99284-25; C9803; U0003; U0005

== ENCOUNTER 2021-01-24 13:20 | Emergency (ER) | payer OTHER ==
[2021-01-24] MEDS ORDERED: IBUPROFEN 600 MG TABLET (FP) PO ONE ×2 (14:51→15:16)
[2021-01-24 15:24] VITALS: BP 151/83; PULSE 99; TEMP 98.3; BMI 35.1
[2021-01-24] MEDS ORDERED: LIDOCAINE 5% TOPICAL PATCH ONE (17:13)
[2021-01-24] MEDS ORDERED: LIDOCAINE 5% TOPICAL PATCH TP ONE ×2 (17:17→17:28)
[2021-01-24] MEDS ORDERED: LIDOCAINE PATCH REMOVAL MC SCH (22:00)
== END 2021-01-24 18:17 | disposition home or self-care (01) ==
LOC: JER 13:20
DX: M25.562 Pain in left knee (principal)
CPT/HCPCS: 73562-TC-LT-FY; 99284-25

== ENCOUNTER 2021-12-16 09:56 | Emergency (ER) | payer OTHER ==
[2021-12-16 09:59] VITALS: BP 180/91; PULSE 86; TEMP 101.7; BMI 36.3
[2021-12-16] MEDS ORDERED: IBUPROFEN 600 MG TABLET (FP) PO ONE (10:11)
[2021-12-16 12:10] LABS: SARS COV-2 MOLECULAR IN-HOUSE POSITIVE (NEGATIVE)
[2021-12-16 12:15] LABS: THROAT:GRP A STREP NOT DETECTED (NOTDETECTED)
== END 2021-12-16 15:24 | disposition home or self-care (01) ==
LOC: JER 09:56
DX: U07.1 COVID-19 (principal)
CPT/HCPCS: 87651; 99283-25; C9803-CS; U0003; U0005

== ENCOUNTER 2024-02-05 19:14 | Inpatient (IN) | payer OTHER ==
[2024-02-05] MEDS ORDERED: hydrALAZINE HCL 25 MG TABLET (FP) ONE (20:39)
[2024-02-05 20:49] LABS: BASO % 0.8 % (0-2.0); EOS % 2.9 % (0-4.5); HEMATOCRIT 39.7 % (32.4-45.2); HEMOGLOBIN 13.1 GM/dL (10.7-15.3); LYMPH % 26.5 % (8-40); MCH 26.7 pg (25.7-33.7); MEAN CELL VOLUME 80.9 fl (80-96); MEAN PLT VOLUME 8.3 fl (7.5-11.1); NEUT % 61.8 % (42.8-82.8); PLATELET COUNT 307 10^3/uL (134-434); RBC 4.91 M/mm3 (3.60-5.2); RDW 14.3 % (11.6-15.6); WHITE BLOOD COUNT 9.5 K/mm3 (4.0-10.0)
[2024-02-05] MEDS: hydrALAZINE HCL 25 MG TABLET (FP) PO ONE (20:50)
[2024-02-05 21:02] LABS: INR 0.95 (0.83-1.09); PROTHROMBIN TIME (PATIENT) 10.7 SEC (9.7-13.0)
[2024-02-05 21:05] LABS: ACTIVATED PTT 29.7 SECONDS (25.2-36.5); POTASSIUM 4.1 mmol/L (3.5-5.1)
[2024-02-05 21:07] LABS: ALBUMIN 4.1 g/dl (3.4-5.0); BLOOD UREA NITROGEN 32.7 mg/dL (7-18); CALCIUM 10.3 mg/dL (8.5-10.1)
[2024-02-05 21:10] LABS: CREATININE 1.1 mg/dL (0.55-1.3)
[2024-02-05 21:12] LABS: BILIRUBIN,TOTAL 0.5 mg/dL (0.2-1); TOT PROT 8.2 g/dl (6.4-8.2)
[2024-02-05] MEDS: SODIUM CHLORIDE 0.9% 500 ML INFUS.BAG IV ONE (22:03)
[2024-02-06] MEDS: hydrALAZINE HCL 25 MG TABLET (FP) PO ONE (06:52)
[2024-02-06] MEDS: INSULIN ASPART SLIDING SCALE (NOVOLOG) 1 VIAL SQ SCH (06:53)
[2024-02-06 07:47] LABS: BASO % 0.8 % (0-2.0); EOS % 2.8 % (0-4.5); HEMATOCRIT 39.5 % (32.4-45.2); HEMOGLOBIN 13.2 GM/dL (10.7-15.3); LYMPH % 27.5 % (8-40); MCH 27.2 pg (25.7-33.7); MCHC 33.3 g/dl (32.0-36.0); MEAN CELL VOLUME 81.7 fl (80-96); MEAN PLT VOLUME 8.5 fl (7.5-11.1); NEUT % 60.9 % (42.8-82.8); PLATELET COUNT 289 10^3/uL (134-434); RBC 4.84 M/mm3 (3.60-5.2); RDW 14.4 % (11.6-15.6); WHITE BLOOD COUNT 8.3 K/mm3 (4.0-10.0)
[2024-02-06 08:09] LABS: POTASSIUM 3.5 mmol/L (3.5-5.1)
[2024-02-06 08:12] LABS: CALCIUM 9.9 mg/dL (8.5-10.1)
[2024-02-06 08:17] LABS: CREATININE 0.8 mg/dL (0.55-1.3)
[2024-02-06] MEDS ORDERED: PATIENT'S OWN MEDICATION (NON-FORMULARY) (Valsartan/Hydrochlorothiazide [Valsartan-Hctz 32 PO SCH (10:00)
[2024-02-06] MEDS: hydrALAZINE HCL 25 MG TABLET (FP) PO SCH ×2 (10:26→21:29)
[2024-02-06] MEDS: VALSARTAN 160 MG TABLET PO SCH (10:26)
[2024-02-06] MEDS: EMPAGLIFLOZIN (JARDIANCE) 25 MG TABLET PO SCH (10:26)
[2024-02-06] MEDS: CARVEDILOL 12.5 MG TABLET (FP) PO SCH (10:26)
[2024-02-06] MEDS: HYDROCHLOROTHIAZIDE 25 MG TABLET (FP) PO SCH (10:26)
[2024-02-06] MEDS: ATORVASTATIN CA 40 MG TABLET (FP) PO SCH (21:29)
[2024-02-07] MEDS: ASPIRIN COATED 81 MG TABLET.EC PO SCH (09:12)
[2024-02-07] MEDS: CARVEDILOL 12.5 MG TABLET (FP) PO SCH (21:53)
[2024-02-07] MEDS: ATORVASTATIN CA 40 MG TABLET (FP) PO SCH (21:53)
[2024-02-07] MEDS: hydrALAZINE HCL 25 MG TABLET (FP) PO SCH (21:54)
[2024-02-07] MEDS: INSULIN (LEVEMIR) 100 UNITS/ML UNITS SQ SCH (21:57)
[2024-02-07] MEDS: INSULIN ASPART SLIDING SCALE (NOVOLOG) 1 VIAL SQ SCH (21:57)
[2024-02-08] MEDS: EMPAGLIFLOZIN (JARDIANCE) 25 MG TABLET PO SCH (06:31)
[2024-02-08] MEDS: LIDOCAINE 4% PATCH TP SCH (12:52)
[2024-02-08] MEDS: VALSARTAN 160 MG TABLET PO SCH (12:54)
[2024-02-08] MEDS: HYDROCHLOROTHIAZIDE 25 MG TABLET (FP) PO SCH (12:55)
[2024-02-08] MEDS: ASPIRIN COATED 81 MG TABLET.EC PO SCH (12:55)
[2024-02-08] MEDS: POLYETHYLENE GLYCOL (HEALTHYLAX) 3350 17 GM PACKET PO SCH (12:55)
[2024-02-08] MEDS: ACETAMINOPHEN 325 MG TABLET (FP) PO PRN (16:24)
[2024-02-08] MEDS: LIDOCAINE PATCH REMOVAL MC SCH (22:36)
[2024-02-09] MEDS ORDERED: MUPIROCIN 2% TOPICAL OINTMENT FOR DECOLONIZATION NS SCH ×2 (00:45→10:00)
[2024-02-09] MEDS ORDERED: HEPARIN INFUSION - 25,000 UNITS/500 ML INFUS.BAG IVPB SCH (05:45)
[2024-02-09 06:10] LABS: POTASSIUM 5.3 mmol/L (3.5-5.1)
[2024-02-09 06:12] LABS: CALCIUM 9.9 mg/dL (8.5-10.1)
[2024-02-09 06:13] LABS: ALBUMIN 3.6 g/dl (3.4-5.0); MAGNESIUM 2.4 mg/dL (1.8-2.4)
[2024-02-09 06:16] LABS: CREATININE 1.4 mg/dL (0.55-1.3); PHOSPHOROUS 4.9 mg/dL (2.5-4.9)
[2024-02-09 06:17] LABS: BILIRUBIN,TOTAL 0.7 mg/dL (0.2-1); TOT PROT 7.9 g/dl (6.4-8.2)
[2024-02-09 06:25] LABS: HEMATOCRIT 36.8 % (32.4-45.2); HEMOGLOBIN 12.2 GM/dL (10.7-15.3); MCHC 33.1 g/dl (32.0-36.0); MEAN CELL VOLUME 81.5 fl (80-96); MEAN PLT VOLUME 8.3 fl (7.5-11.1); PLATELET COUNT 276 10^3/uL (134-434); RBC 4.52 M/mm3 (3.60-5.2); RDW 14.2 % (11.6-15.6); WHITE BLOOD COUNT 11.7 K/mm3 (4.0-10.0)
[2024-02-09] MEDS: EMPAGLIFLOZIN (JARDIANCE) 25 MG TABLET PO SCH (06:35)
[2024-02-09] MEDS: INSULIN (LEVEMIR) 100 UNITS/ML UNITS SQ SCH (06:35)
[2024-02-09] MEDS: INSULIN ASPART SLIDING SCALE (NOVOLOG) 1 VIAL SQ SCH (06:35)
[2024-02-09 06:36] LABS: PROTHROMBIN TIME (PATIENT) 11.5 SEC (9.7-13.0)
[2024-02-09 06:38] LABS: ACTIVATED PTT 27.7 SECONDS (25.2-36.5)
[2024-02-09] MEDS ORDERED: MAGNESIUM HYDROX 2400MG/30ML ORAL SUSPENSION 30 ML CUP PO PRN (08:09)
[2024-02-09] MEDS: HEPARIN - 25,000 UNIT in SODIUM CHLORIDE 495 ML IV SCH (09:21)
[2024-02-09] MEDS: CARVEDILOL 12.5 MG TABLET (FP) PO SCH (13:52)
[2024-02-09] MEDS: hydrALAZINE HCL 50 MG TABLET (FP) PO SCH (13:52)
[2024-02-09] MEDS: VALSARTAN 160 MG TABLET PO SCH (13:52)
[2024-02-09] MEDS: HYDROCHLOROTHIAZIDE 25 MG TABLET (FP) PO SCH (13:52)
[2024-02-09] MEDS: POLYETHYLENE GLYCOL (HEALTHYLAX) 3350 17 GM PACKET PO SCH (13:53)
[2024-02-09] MEDS: ASPIRIN COATED 81 MG TABLET.EC PO SCH (13:53)
[2024-02-09] MEDS: HEPARIN NA (PORCINE) 5,000 UNITS/ML 1ML VIAL IVPUSH PRN (16:20)
[2024-02-09] MEDS: GLYCERIN 1 RECTAL SUPPOSITORY, ADULT RC ONE (18:58)
[2024-02-09] MEDS: LIDOCAINE 4% PATCH TP SCH (18:58)
[2024-02-09] MEDS: ATORVASTATIN CA 40 MG TABLET (FP) PO SCH (21:17)
[2024-02-09] MEDS ORDERED: ATORVASTATIN CA 40 MG TABLET (FP) PO SCH (22:00)
[2024-02-09] MEDS ORDERED: CHLORHEXIDINE GLUCONATE 4% CLEANSER FOR DECOLONIZATION TP SCH ×2 (22:00)
[2024-02-09] MEDS ORDERED: LIDOCAINE PATCH REMOVAL MC SCH (22:00)
[2024-02-09] MEDS: LIDOCAINE PATCH REMOVAL MC SCH (22:01)
[2024-02-10 03:09] LABS: EPI CELLS 3 /uL (0-25.1); HYALINE CASTS 0 /uL (0-3.1); URINE APPEARANCE CLEAR; URINE BACTERIA >9,000 /uL (0-1359); URINE BILIRUBIN NEGATIVE (NEGATIVE); URINE COLOR YELLOW; URINE GLUCOSE (UA) 3+ (NEGATIVE); URINE KETONE TRACE (NEGATIVE); URINE LEUK ESTERASE 1+ (NEGATIVE); URINE NITRITE NEGATIVE (NEGATIVE); URINE PROTEIN NEGATIVE (NEGATIVE); URINE RBC 10 /uL (0-23.9); URINE UROBILINOGEN 0.2 mg/dL (0.2-1.0); URINE WBC 94 /uL (0-25.8)
[2024-02-10] MEDS: hydrALAZINE HCL 20 MG/ML VIAL IVPUSH PRN (04:54)
[2024-02-10 06:38] LABS: BASO % 0.9 % (0-2.0); EOS % 0.1 % (0-4.5); HEMATOCRIT 35.1 % (32.4-45.2); HEMOGLOBIN 11.5 GM/dL (10.7-15.3); LYMPH % 14.1 % (8-40); MCH 26.8 pg (25.7-33.7); MCHC 32.8 g/dl (32.0-36.0); MEAN CELL VOLUME 81.5 fl (80-96); MEAN PLT VOLUME 8.9 fl (7.5-11.1); MONO % 6.8 % (3.8-10.2); NEUT % 78.1 % (42.8-82.8); PLATELET COUNT 300 10^3/uL (134-434); RDW 14.1 % (11.6-15.6); WHITE BLOOD COUNT 13.1 K/mm3 (4.0-10.0)
[2024-02-10 06:57] LABS: POTASSIUM 3.6 mmol/L (3.5-5.1)
[2024-02-10 06:59] LABS: ALBUMIN 3.2 g/dl (3.4-5.0); BLOOD UREA NITROGEN 49.1 mg/dL (7-18); CALCIUM 9.4 mg/dL (8.5-10.1); MAGNESIUM 2.6 mg/dL (1.8-2.4)
[2024-02-10 07:01] LABS: PHOSPHOROUS 4.5 mg/dL (2.5-4.9)
[2024-02-10 07:03] LABS: CREATININE 1.4 mg/dL (0.55-1.3)
[2024-02-10 07:04] LABS: BILIRUBIN,TOTAL 0.5 mg/dL (0.2-1); TOT PROT 6.6 g/dl (6.4-8.2)
[2024-02-10 21:45] LABS: INR 1.04 (0.83-1.09)
[2024-02-10 21:47] LABS: ACTIVATED PTT 53.6 SECONDS (25.2-36.5)
[2024-02-11 07:47] LABS: POTASSIUM 3.7 mmol/L (3.5-5.1)
[2024-02-11 07:53] LABS: BLOOD UREA NITROGEN 61.2 mg/dL (7-18); CALCIUM 9.6 mg/dL (8.5-10.1); MAGNESIUM 2.8 mg/dL (1.8-2.4)
[2024-02-11 07:54] LABS: CREATININE 1.4 mg/dL (0.55-1.3)
[2024-02-11 07:56] LABS: PHOSPHOROUS 4.3 mg/dL (2.5-4.9)
[2024-02-11 08:15] LABS: HEMATOCRIT 33.7 % (32.4-45.2); HEMOGLOBIN 11.1 GM/dL (10.7-15.3); MCHC 32.9 g/dl (32.0-36.0); MEAN CELL VOLUME 82.1 fl (80-96); MEAN PLT VOLUME 9.3 fl (7.5-11.1); PLATELET COUNT 274 10^3/uL (134-434); RDW 14.2 % (11.6-15.6); WHITE BLOOD COUNT 11.6 K/mm3 (4.0-10.0)
[2024-02-11] MEDS: ONDANSETRON 4 MG/2 ML VIAL IVPUSH PRN (11:37)
[2024-02-11 14:52] LABS: INR 1.02 (0.83-1.09); PROTHROMBIN TIME (PATIENT) 11.5 SEC (9.7-13.0)
[2024-02-11 14:55] LABS: ACTIVATED PTT 39.9 SECONDS (25.2-36.5)
[2024-02-11] MEDS ORDERED: INSULIN ASPART SLIDING SCALE (NOVOLOG) 1 VIAL SQ ONE (17:18)
[2024-02-12 06:28] LABS: EOS % 0.7 % (0-4.5); HEMATOCRIT 32.4 % (32.4-45.2); HEMOGLOBIN 10.7 GM/dL (10.7-15.3); LYMPH % 19.9 % (8-40); MCH 27.2 pg (25.7-33.7); MCHC 33.1 g/dl (32.0-36.0); MEAN CELL VOLUME 82.1 fl (80-96); MEAN PLT VOLUME 9.3 fl (7.5-11.1); MONO % 8.8 % (3.8-10.2); NEUT % 69.6 % (42.8-82.8); PLATELET COUNT 268 10^3/uL (134-434); RBC 3.95 M/mm3 (3.60-5.2); RDW 14.5 % (11.6-15.6); WHITE BLOOD COUNT 10.3 K/mm3 (4.0-10.0)
[2024-02-12 06:29] LABS: HEMATOCRIT 32.1 % (32.4-45.2); HEMOGLOBIN 10.6 GM/dL (10.7-15.3); MCH 27.2 pg (25.7-33.7); MCHC 32.9 g/dl (32.0-36.0); MEAN CELL VOLUME 82.6 fl (80-96); MEAN PLT VOLUME 8.9 fl (7.5-11.1); PLATELET COUNT 269 10^3/uL (134-434); RBC 3.89 M/mm3 (3.60-5.2); RDW 14.2 % (11.6-15.6); WHITE BLOOD COUNT 10.3 K/mm3 (4.0-10.0)
[2024-02-12 06:43] LABS: POTASSIUM 3.9 mmol/L (3.5-5.1)
[2024-02-12 06:47] LABS: ALBUMIN 2.8 g/dl (3.4-5.0); BLOOD UREA NITROGEN 59.3 mg/dL (7-18); CALCIUM 9.1 mg/dL (8.5-10.1); MAGNESIUM 2.7 mg/dL (1.8-2.4)
[2024-02-12 06:50] LABS: CREATININE 1.3 mg/dL (0.55-1.3); PHOSPHOROUS 3.3 mg/dL (2.5-4.9)
[2024-02-12 06:52] LABS: BILIRUBIN,TOTAL 0.5 mg/dL (0.2-1); TOT PROT 6.2 g/dl (6.4-8.2)
[2024-02-12] MEDS: APIXABAN 5 MG TABLET PO SCH (21:32)
[2024-02-13 07:38] LABS: POTASSIUM 4.1 mmol/L (3.5-5.1)
[2024-02-13 07:44] LABS: HEMOGLOBIN 11.2 GM/dL (10.7-15.3); MCH 27.6 pg (25.7-33.7); MCHC 33.9 g/dl (32.0-36.0); MEAN CELL VOLUME 81.3 fl (80-96); MEAN PLT VOLUME 8.6 fl (7.5-11.1); PLATELET COUNT 278 10^3/uL (134-434); RBC 4.05 M/mm3 (3.60-5.2); RDW 14.3 % (11.6-15.6); WHITE BLOOD COUNT 7.7 K/mm3 (4.0-10.0)
[2024-02-13 07:45] LABS: ALBUMIN 2.9 g/dl (3.4-5.0); BLOOD UREA NITROGEN 43.6 mg/dL (7-18); CALCIUM 9.5 mg/dL (8.5-10.1)
[2024-02-13 07:49] LABS: CREATININE 1.2 mg/dL (0.55-1.3)
[2024-02-13 07:50] LABS: BILIRUBIN,TOTAL 0.6 mg/dL (0.2-1)
[2024-02-13 07:51] LABS: TOT PROT 6.2 g/dl (6.4-8.2)
[2024-02-13] MEDS: ONDANSETRON 4 MG/2 ML VIAL IVPUSH STA (10:40)
[2024-02-13] MEDS: DOCUSATE SODIUM 100 MG CAPSULE (FP) PO SCH (10:40)
[2024-02-13 14:09] VITALS: BMI 33.7
[2024-02-14 07:31] LABS: POTASSIUM 4.2 mmol/L (3.5-5.1)
[2024-02-14 07:33] LABS: CALCIUM 9.8 mg/dL (8.5-10.1); HEMATOCRIT 35.7 % (32.4-45.2); HEMOGLOBIN 11.7 GM/dL (10.7-15.3); MCHC 32.9 g/dl (32.0-36.0); MEAN CELL VOLUME 81.9 fl (80-96); MEAN PLT VOLUME 8.4 fl (7.5-11.1); PLATELET COUNT 297 10^3/uL (134-434); RBC 4.35 M/mm3 (3.60-5.2); RDW 13.6 % (11.6-15.6); WHITE BLOOD COUNT 8.4 K/mm3 (4.0-10.0)
[2024-02-14 07:34] LABS: ALBUMIN 3.1 g/dl (3.4-5.0); BLOOD UREA NITROGEN 40.5 mg/dL (7-18); MAGNESIUM 2.4 mg/dL (1.8-2.4)
[2024-02-14 07:37] LABS: CREATININE 0.9 mg/dL (0.55-1.3); PHOSPHOROUS 3.2 mg/dL (2.5-4.9)
[2024-02-14 07:38] LABS: BILIRUBIN,TOTAL 0.6 mg/dL (0.2-1); TOT PROT 6.7 g/dl (6.4-8.2)
[2024-02-15 06:52] LABS: HEMOGLOBIN 11.4 GM/dL (10.7-15.3); MCH 26.9 pg (25.7-33.7); MCHC 32.6 g/dl (32.0-36.0); MEAN CELL VOLUME 82.3 fl (80-96); MEAN PLT VOLUME 8.7 fl (7.5-11.1); PLATELET COUNT 287 10^3/uL (134-434); RBC 4.26 M/mm3 (3.60-5.2); RDW 13.9 % (11.6-15.6); WHITE BLOOD COUNT 12.1 K/mm3 (4.0-10.0)
[2024-02-15] MEDS ORDERED: hydrALAZINE HCL 20 MG/ML VIAL IVPUSH PRN (18:27)
[2024-02-15] MEDS ORDERED: ONDANSETRON 4 MG/2 ML VIAL IVPUSH PRN (18:27)
[2024-02-15] MEDS ORDERED: MAGNESIUM HYDROX 2400MG/30ML ORAL SUSPENSION 30 ML CUP PO PRN (18:27)
[2024-02-15] MEDS: APIXABAN 5 MG TABLET PO SCH (22:26)
[2024-02-15] MEDS: CARVEDILOL 12.5 MG TABLET (FP) PO SCH (22:26)
[2024-02-15] MEDS: ATORVASTATIN CA 40 MG TABLET (FP) PO SCH (22:27)
[2024-02-15] MEDS: INSULIN ASPART SLIDING SCALE (NOVOLOG) 1 VIAL SQ SCH (22:28)
[2024-02-15] MEDS: INSULIN (LEVEMIR) 100 UNITS/ML UNITS SQ SCH (22:41)
[2024-02-15] MEDS: LIDOCAINE PATCH REMOVAL MC SCH (22:42)
[2024-02-16] MEDS: EMPAGLIFLOZIN (JARDIANCE) 25 MG TABLET PO SCH (06:55)
[2024-02-16] MEDS ORDERED: HYDROCHLOROTHIAZIDE 25 MG TABLET (FP) PO SCH (10:00)
[2024-02-16] MEDS: LIDOCAINE 4% PATCH TP SCH (10:06)
[2024-02-16] MEDS: DOCUSATE SODIUM 100 MG CAPSULE (FP) PO SCH (10:07)
[2024-02-16] MEDS: ASPIRIN COATED 81 MG TABLET.EC PO SCH (10:07)
[2024-02-16] MEDS: POLYETHYLENE GLYCOL (HEALTHYLAX) 3350 17 GM PACKET PO SCH (10:07)
[2024-02-16] MEDS: VALSARTAN 160 MG TABLET PO SCH (10:51)
[2024-02-16] MEDS: INSULIN (LEVEMIR) 100 UNITS/ML UNITS SQ SCH (21:45)
[2024-02-17 08:26] LABS: BASO % 0.7 % (0-2.0); EOS % 3.4 % (0-4.5); HEMATOCRIT 33.5 % (32.4-45.2); LYMPH % 23.7 % (8-40); MCH 26.7 pg (25.7-33.7); MCHC 32.9 g/dl (32.0-36.0); MEAN CELL VOLUME 81.3 fl (80-96); MEAN PLT VOLUME 8.5 fl (7.5-11.1); MONO % 9.7 % (3.8-10.2); NEUT % 62.5 % (42.8-82.8); PLATELET COUNT 311 10^3/uL (134-434); RBC 4.13 M/mm3 (3.60-5.2); RDW 13.8 % (11.6-15.6); WHITE BLOOD COUNT 9.5 K/mm3 (4.0-10.0)
[2024-02-17 08:39] LABS: POTASSIUM 4.2 mmol/L (3.5-5.1)
[2024-02-17 08:46] LABS: BLOOD UREA NITROGEN 47.4 mg/dL (7-18); CALCIUM 9.8 mg/dL (8.5-10.1)
[2024-02-17 08:49] LABS: CREATININE 1.1 mg/dL (0.55-1.3)
[2024-02-17 08:51] LABS: BILIRUBIN,TOTAL 0.7 mg/dL (0.2-1); TOT PROT 6.5 g/dl (6.4-8.2)
[2024-02-17] MEDS: INSULIN (LEVEMIR) 100 UNITS/ML UNITS SQ SCH (22:22)
[2024-02-18 18:51] VITALS: TEMP 98.1
[2024-02-19 15:22] VITALS: BP 124/44; PULSE 63; RESP 18
== END 2024-02-19 16:48 | DRG 65 ==
LOC: JER 19:14 → JERBED 22:01 → J4S 02-06 03:40 → J5S 02-07 17:45 → J4W 02-08 10:26 → JICU 02-09 03:04 → OBSVTOIN 02-09 07:54 → J4W 02-15 14:16
PROVIDERS: ADMIT Internal Medicine; ATTEND Internal Medicine
DX: I63.89 Other cerebral infarction (principal); I69.352 Hemiplegia and hemiparesis following cerebral infarction affecting left dominant side; E78.5 Hyperlipidemia, unspecified; E11.9 Type 2 diabetes mellitus without complications; J45.909 Unspecified asthma, uncomplicated; I16.0 Hypertensive urgency; R26.2 Difficulty in walking, not elsewhere classified; I48.91 Unspecified atrial fibrillation; K59.00 Constipation, unspecified; W18.30XA Fall on same level, unspecified, initial encounter; Y92.098 Other place in other non-institutional residence as the place of occurrence of the external cause; Y99.9 Unspecified external cause status
CPT/HCPCS: 0241U-QW; 36415; 70450-TC; 70496-TC; 70498-TC; 70544-TC; 70551-TC; 71045-TC-FY; 74018-TC-FY; 80048; 80053; 81003; 82550; 82553; 82962; 83036; 83735; 83880; 84100; 84443; 84484; 85025; 85027; 85379; 85610; 85730; 86850; 86900; 86901; 93005; 93010; 93306-TC; 93308; 93880-TC; 97116-GP; 97161-GP; 99285-25; G0378; J1644; Q9967

== ENCOUNTER 2025-01-21 17:47 | Inpatient (IN) | payer OTHER ==
[2025-01-21 18:01] VITALS: BMI 24.1
[2025-01-21] MEDS ORDERED: LIDOCAINE 5% TOPICAL PATCH ONE (18:33)
[2025-01-21] MEDS: LIDOCAINE 5% TOPICAL PATCH TP ONE (18:41)
[2025-01-21] MEDS ORDERED: METHOCARBAMOL 500 MG TABLET ONE (18:45)
[2025-01-21] MEDS ORDERED: IBUPROFEN 400 MG TABLET (FP) PO ONE (18:46)
[2025-01-21] MEDS ORDERED: ACETAMINOPHEN 325 MG TABLET (FP) ONE (18:46)
[2025-01-21] MEDS: IBUPROFEN 400 MG TABLET (FP) PO ONE (18:54)
[2025-01-21] MEDS: ACETAMINOPHEN 325 MG TABLET (FP) PO ONE (18:55)
[2025-01-21] MEDS: METHOCARBAMOL 500 MG TABLET PO ONE (18:55)
[2025-01-21 18:58] LABS: URINE APPEARANCE CLEAR; URINE BILIRUBIN NEGATIVE (NEGATIVE); URINE COLOR YELLOW; URINE GLUCOSE (UA) 3+ (NEGATIVE); URINE KETONE NEGATIVE (NEGATIVE); URINE LEUK ESTERASE NEGATIVE (NEGATIVE); URINE NITRITE NEGATIVE (NEGATIVE); URINE PROTEIN NEGATIVE (NEGATIVE); URINE UROBILINOGEN 0.2 mg/dL (0.2-1.0)
[2025-01-21 20:52] LABS: ABSOLUTE IMMATURE GRANULOCYTES 0.05 x10^3/uL (0.0-0.031); BASOPHILS # 0.06 x10^3/uL (0.01-0.08); EOSINOPHIL % 2.9 % (0.7-5.8); EOSINOPHILS # 0.19 x10^3/uL (0.04-0.36); MCHC 32.2 g/dl (32.2-35.5); MEAN CELL VOLUME 83.3 fl (79.4-94.8); MEAN PLT VOLUME 9.5 fl (9.4-12.3); MONOCYTE # 0.52 x10^3/uL (0.24-0.86); MONOCYTE % 7.9 % (4.7-12.5); RDW 13.6 % (12.5-17.0)
[2025-01-21 21:06] LABS: GLUCOSE,RANDOM 105.0 mg/dL (74-106); TOT PROT 7.9 g/dl (6.4-8.2)
[2025-01-21 21:07] LABS: CO2 24.0 mmol/L (21-32)
[2025-01-21 21:09] LABS: ALK PHOS 108.0 U/L (40-150)
[2025-01-21 21:11] LABS: SGOT/AST 30.0 U/L (5-34); SGPT/ALT 33.0 U/L (0-55)
[2025-01-21 21:12] LABS: CREATININE 0.66 mg/dL (0.55-1.3)
[2025-01-21] MEDS: LIDOCAINE PATCH REMOVAL MC SCH (22:08)
[2025-01-21] MEDS ORDERED: CEFTRIAXONE 1 GM/50 ML BAG ONE (23:03)
[2025-01-21] MEDS: CEFTRIAXONE 1 GM in DEXTROSE 5%-WATER - 50 ML IVPB ONE (23:05)
[2025-01-22] MEDS: AZITHROMYCIN IVPB 500 MG/250 ML BAG IVPB ONE (02:56)
[2025-01-22 08:08] LABS: ABSOLUTE IMMATURE GRANULOCYTES 0.05 x10^3/uL (0.0-0.031); BASOPHILS # 0.06 x10^3/uL (0.01-0.08); EOSINOPHIL % 3.1 % (0.7-5.8); EOSINOPHILS # 0.18 x10^3/uL (0.04-0.36); MCHC 32.5 g/dl (32.2-35.5); MEAN CELL VOLUME 83.2 fl (79.4-94.8); MEAN PLT VOLUME 9.6 fl (9.4-12.3); MONOCYTE # 0.50 x10^3/uL (0.24-0.86); MONOCYTE % 8.7 % (4.7-12.5); RDW 13.6 % (12.5-17.0)
[2025-01-22 08:55] LABS: GLUCOSE,RANDOM 122.0 mg/dL (74-106)
[2025-01-22 08:56] LABS: CO2 26.0 mmol/L (21-32)
[2025-01-22 09:01] LABS: CREATININE 0.71 mg/dL (0.55-1.3)
[2025-01-22] MEDS: ACETAMINOPHEN 325 MG TABLET (FP) PO PRN (10:15)
[2025-01-22] MEDS: CEFTRIAXONE 1 GM in DEXTROSE 5%-WATER - 50 ML IVPB SCH (10:15)
[2025-01-22] MEDS: AZITHROMYCIN IVPB 500 MG/250 ML BAG IVPB SCH (10:15)
[2025-01-22] MEDS ORDERED: POLYETHYLENE GLYCOL (HEALTHYLAX) 3350 17 GM PACKET PO PRN (12:34)
[2025-01-22] MEDS: LACTOBACILLUS ACIDOPHILUS 1 TABLET PO SCH (13:42)
[2025-01-22] MEDS: hydrALAZINE HCL 25 MG TABLET (FP) PO SCH (21:27)
[2025-01-22] MEDS: CARVEDILOL 12.5 MG TABLET (FP) PO SCH (21:27)
[2025-01-22] MEDS: MONTELUKAST NA 10 MG TABLET PO SCH (21:28)
[2025-01-22] MEDS: ATORVASTATIN CA 40 MG TABLET (FP) PO SCH (21:28)
[2025-01-22] MEDS: APIXABAN 5 MG TABLET PO SCH (21:28)
[2025-01-23] MEDS: EMPAGLIFLOZIN (JARDIANCE) 25 MG TABLET PO SCH (06:19)
[2025-01-23] MEDS: VALSARTAN 160 MG TABLET PO SCH (09:14)
[2025-01-23] MEDS: ASPIRIN COATED 81 MG TABLET.EC PO SCH (09:14)
[2025-01-23] MEDS: LIDOCAINE 4% PATCH TP SCH (15:30)
[2025-01-23] MEDS: LIDOCAINE PATCH REMOVAL MC SCH (21:02)
[2025-01-24 22:04] VITALS: RESP 18
[2025-01-25 11:41] VITALS: TEMP 98.4
[2025-01-25 15:54] VITALS: BP 172/85; PULSE 75
== END 2025-01-25 15:35 | DRG 194 ==
LOC: JER 17:47 → SUATTDRO 17:47 → JERBED 20:01 → J6S 23:33 → OBSVTOIN 01-22 10:55
PROVIDERS: ADMIT Hospitalist; ATTEND Internal Medicine
DX: J18.9 Pneumonia, unspecified organism (principal); I69.354 Hemiplegia and hemiparesis following cerebral infarction affecting left non-dominant side; I10 Essential (primary) hypertension; E11.9 Type 2 diabetes mellitus without complications; E78.5 Hyperlipidemia, unspecified; R35.0 Frequency of micturition
CPT/HCPCS: 36415; 71045-TC-FY; 73502-TC-LT-FY; 74177-TC; 80048; 80053; 81003; 82962; 85025; 87040; 87086; 87899; 93005; 93010; 97162-GP; 99285-25; G0378